=== PATIENT | female | born 1980 | race Two or more races ===

== ENCOUNTER 2024-02-23 07:07 | Day surgery (SDC) | payer OTHER ==
[~2024-02-23 07:07] MED LIST: LEVOTHYROXINE25 MCG PO
[2024-02-23] MEDS ORDERED: POVIDONE-IODINE 118 ML BOTT TOP ONE (09:55)
[2024-02-23] MEDS ORDERED: CEFAZOLIN SODIUM 1,000 MG VIAL ONE (09:56)
[2024-02-23] MEDS ORDERED: SUGAMMADEX SODIUM 200 MG/2 ML VIAL IV ONE (10:33)
[2024-02-23] MEDS ORDERED: MORPHINE SULFATE 4 MG/ML VIAL IV ONE (12:25)
== END 2024-02-23 15:20 | disposition home or self-care (01) ==
LOC: CIR.AMB 07:07
PROVIDERS: ATTEND Obstetrics & Gynecology
DX: N84.1 Polyp of cervix uteri (principal); N84.0 Polyp of corpus uteri; E03.9 Hypothyroidism, unspecified